=== PATIENT | male | born 1975 | race Caucasian/White ===

== ENCOUNTER 2018-09-04 16:28 | Emergency (ER) | payer MEDICAID, OTHER ==
[~2018-09-04] VITALS: Ht 177.8 cm; Wt 75.0 kg
[2018-09-04] MEDS ORDERED: CefTRIAXone/D5W-Rocephin 1gm 50 ML IV ONE (17:25)
[2018-09-04 17:26] LABS: BASOPHILS # (AUTO) 0.1 X10'3 (0-0.2); BASOPHILS % (AUTO) 0.2 % (0-1); EOSINOPHILS % (AUTO) 0.1 % (0-6); HEMATOCRIT 45.3 % (42.0-52.0); HEMOGLOBIN 14.9 g/dl (14.0-17.9); LYMPHOCYTES # (AUTO) 0.7 X10'3 (1.1-4.8); LYMPHOCYTES % (AUTO) 2.3 % (21-51); MEAN CORPUSCULAR HGB CONC 32.9 g/dL (33.0-36.5); MEAN CORPUSCULAR VOLUME 84.9 FL (78-98); MEAN PLATELET VOLUME 7.3 FL (7.4-10.4); MONOCYTES # (AUTO) 1.6 X10'3 (0-0.9); MONOCYTES % (AUTO) 5.1 % (2-12); NEUTROPHILS # (AUTO) 28.7 X10'3 (1.8-7.7); NEUTROPHILS % (AUTO) 92.3 % (42-75); PLATELET COUNT 342 X10'3 (140-440); RED BLOOD COUNT 5.33 X10'6 (4.70-6.10); RED CELL DISTRIBUTION WIDTH 13.7 % (11.5-14.5)
[2018-09-04 17:31] LABS: WHITE BLOOD COUNT 31.1 X10'3 (4.5-11.0)
[2018-09-04 17:35] LABS: ALANINE AMINOTRANSFERASE 19 U/L (12-78); ALBUMIN 3.5 G/DL (3.4-5.0); ALBUMIN/GLOBULIN RATIO 0.9 (1.1-1.5); ALKALINE PHOSPHATASE 78 IU/L (46-116); ANION GAP 6 (8-16); ASPARTATE AMINO TRANSFERASE 12 U/L (10-37); BILIRUBIN,TOTAL 0.8 MG/DL (0.1-1.0); BLOOD UREA NITROGEN 17 MG/DL (7-18); BUN/CREATININE RATIO 12.8 (5.4-32.0); CALCIUM 8.9 MG/DL (8.5-10.1); CHLORIDE 101 MMOL/L (99-107); CREATININE 1.33 MG/DL (0.60-1.10); GLUCOSE 113 MG/DL (70-104); POTASSIUM 3.9 MMOL/L (3.5-5.1); SODIUM 136 MMOL/L (135-145); TOTAL PROTEIN 7.4 G/DL (6.4-8.2); eGFR 58 ML/MIN
[2018-09-04] MEDS ORDERED: GUAI237S46 PO (18:04)
[2018-09-04] MEDS ORDERED: AZIT250T83 PO (18:04)
[2018-09-04 18:11] LABS: TOTAL CELLS COUNTED 100
[2018-09-04 18:12] LABS: PLATELET ESTIMATE NORMAL; TOXIC GRANULATION 1+
[2018-09-04 18:13] LABS: TOXIC VACUOLATION FEW
[2018-09-04 18:31] VITALS: BP 116/76
== END 2018-09-04 18:36 | disposition home or self-care (01) ==
LOC: ER 16:29
DX: J18.9 Pneumonia, unspecified organism (principal); F17.200 Nicotine dependence, unspecified, uncomplicated
CPT/HCPCS: 36415; 71045; 80053; 83605; 84145; 85025; 93005; 96365; 99284; J0696

== ENCOUNTER 2020-11-24 08:23 | Emergency (ER) | payer MEDICAID, OTHER ==
[~2020-11-24] VITALS: Ht 175.3 cm; Wt 73.0 kg
[2020-11-24 10:00] VITALS: BP 135/90
[2020-11-24] MEDS ORDERED: ketorolac trometh. 30mg/ml inj. IV ONE (10:10)
[2020-11-24 10:40] LABS: BASOPHILS # (AUTO) 0.1 X10'3 (0-0.2); BASOPHILS % (AUTO) 0.4 % (0-1); EOSINOPHILS # (AUTO) 0.2 X10'3 (0-0.9); EOSINOPHILS % (AUTO) 1.5 % (0-6); HEMATOCRIT 45.8 % (42.0-52.0); HEMOGLOBIN 15.5 g/dl (14.0-17.9); LYMPHOCYTES # (AUTO) 1.7 X10'3 (1.1-4.8); LYMPHOCYTES % (AUTO) 13.6 % (21-51); MEAN CORPUSCULAR HEMOGLOBIN 28.6 PG (27.0-31.0); MEAN CORPUSCULAR HGB CONC 33.8 g/dL (33.0-36.5); MEAN CORPUSCULAR VOLUME 84.4 FL (78-98); MEAN PLATELET VOLUME 6.9 FL (7.4-10.4); MONOCYTES # (AUTO) 1.5 X10'3 (0-0.9); MONOCYTES % (AUTO) 11.8 % (2-12); NEUTROPHILS # (AUTO) 9.1 X10'3 (1.8-7.7); NEUTROPHILS % (AUTO) 72.7 % (42-75); PLATELET COUNT 371 X10'3 (140-440); RED BLOOD COUNT 5.42 X10'6 (4.70-6.10); RED CELL DISTRIBUTION WIDTH 14.1 % (11.5-14.5); WHITE BLOOD COUNT 12.5 X10'3 (4.5-11.0)
[2020-11-24] MEDS ORDERED: iohexol 300mg/ml 100ml inj. ONE (10:51)
[2020-11-24 11:04] LABS: ALANINE AMINOTRANSFERASE 19 U/L (12-78); ALBUMIN 3.2 G/DL (3.4-5.0); ALBUMIN/GLOBULIN RATIO 0.8 (1.1-1.5); ALKALINE PHOSPHATASE 103 IU/L (46-116); ANION GAP 5 (8-16); ASPARTATE AMINO TRANSFERASE 11 U/L (10-37); BILIRUBIN,TOTAL 0.2 MG/DL (0.1-1.0); BLOOD UREA NITROGEN 10 MG/DL (7-18); BUN/CREATININE RATIO 9.7 (5.4-32.0); CALCIUM 8.8 MG/DL (8.5-10.1); CHLORIDE 102 MMOL/L (99-107); CREATININE 1.03 MG/DL (0.60-1.10); GLUCOSE 107 MG/DL (70-104); POTASSIUM 3.6 MMOL/L (3.5-5.1); SODIUM 136 MMOL/L (135-145); TOTAL CARBON DIOXIDE 29.3 MMOL/L (24-32); TOTAL PROTEIN 7.2 G/DL (6.4-8.2); eGFR 77 ML/MIN
[2020-11-24] MEDS ORDERED: ringers solution, lacted 1,000 ML IV ONE (14:00)
[2020-11-24 14:45] LABS: CLARITY,URINE CLEAR (Clear); COLOR,URINE YELLOW (Yellow); GLUCOSE, URINE NEGATIVE (Neg); KETONES,URINE NEGATIVE (Neg); LEUKOCYTE ESTERASE ,URINE NEGATIVE (Neg); NITRITES, URINE NEGATIVE (Neg); OCCULT BLOOD,URINE TRACE-INTACT (Neg); PROTEIN,URINE NEGATIVE (Neg)
[2020-11-24 14:47] LABS: UA COLLECTION TYPE URINAL
[2020-11-24 14:51] LABS: BACTERIA,URINE NONE SEEN /HPF (Neg); MUCUS STRANDS FEW /LPF (Neg); RBC,URINE 0-2 /HPF (0-2); SQUAMOUS EPITHELIAL CELL,UR FEW /LPF (FEW); WBC,URINE 0-4 /HPF (0-4)
== END 2020-11-24 14:30 | disposition left against medical advice (07) ==
LOC: ER 08:23
DX: M54.9 Dorsalgia, unspecified (principal); K57.90 Diverticulosis of intestine, part unspecified, without perforation or abscess without bleeding
CPT/HCPCS: 36415; 71250; 74177; 80053; 81001; 85025; 96374; 99285; J1885; Q9967

== ENCOUNTER 2021-08-30 01:21 | Inpatient (IN) | payer MEDICAID ==
[~2021-08-30] VITALS: Ht 175.3 cm; Wt 77.3 kg
[2021-08-30] VITALS (7 sets, daily range): BP systolic 109–158; BP diastolic 61–81
[2021-08-30 01:48] LABS: BASOPHILS % (AUTO) 0.2 % (0-1); EOSINOPHILS # (AUTO) 0.1 X10'3 (0-0.9); EOSINOPHILS % (AUTO) 0.2 % (0-6); HEMATOCRIT 54.8 % (42.0-52.0); LYMPHOCYTES # (AUTO) 1.3 X10'3 (1.1-4.8); LYMPHOCYTES % (AUTO) 6.2 % (21-51); MEAN CORPUSCULAR HEMOGLOBIN 28.3 PG (27.0-31.0); MEAN CORPUSCULAR HGB CONC 33.8 g/dL (33.0-36.5); MEAN CORPUSCULAR VOLUME 83.7 FL (78-98); MEAN PLATELET VOLUME 7.2 FL (7.4-10.4); MONOCYTES % (AUTO) 4.4 % (2-12); NEUTROPHILS # (AUTO) 19.4 X10'3 (1.8-7.7); PLATELET COUNT 460 X10'3 (140-440); RED BLOOD COUNT 6.55 X10'6 (4.70-6.10); WHITE BLOOD COUNT 21.8 X10'3 (4.5-11.0)
[2021-08-30 01:52] LABS: HEMOGLOBIN 18.5 g/dl (14.0-17.9)
[2021-08-30 02:00] LABS: ALANINE AMINOTRANSFERASE 27 U/L (12-78); ALBUMIN 4.4 G/DL (3.4-5.0); ALKALINE PHOSPHATASE 122 IU/L (46-116); ANION GAP 12 (8-16); ASPARTATE AMINO TRANSFERASE 14 U/L (10-37); BILIRUBIN,TOTAL 0.4 MG/DL (0.1-1.0); BLOOD UREA NITROGEN 24 MG/DL (7-18); BUN/CREATININE RATIO 13.6 (5.4-32.0); CALCIUM 10.5 MG/DL (8.5-10.1); CHLORIDE 101 MMOL/L (99-107); CREATININE 1.76 MG/DL (0.60-1.10); GLUCOSE 189 MG/DL (70-104); LIPASE < 50 U/L (73-393); POTASSIUM 4.5 MMOL/L (3.5-5.1); SODIUM 139 MMOL/L (135-145); TOTAL CARBON DIOXIDE 26.5 MMOL/L (24-32); TOTAL PROTEIN 8.9 G/DL (6.4-8.2); eGFR 42 ML/MIN
[2021-08-30] MEDS ORDERED: normal saline 1000ML IV soln IVB ONE ×2 (02:00→03:25)
[2021-08-30] MEDS ORDERED: ondansetron/PF 4mg/2ml inj IV ONE ×2 (02:00→03:25)
[2021-08-30] MEDS ORDERED: normal saline 1000ml 1,000 ML IV ONE (02:05)
[2021-08-30 03:40] LABS: CLARITY,URINE SLIGHTLY CLOUDY (Clear); COLOR,URINE YELLOW (Yellow); GLUCOSE, URINE NEGATIVE (Neg); KETONES,URINE TRACE mg/dl (Neg); LEUKOCYTE ESTERASE ,URINE NEGATIVE (Neg); NITRITES, URINE NEGATIVE (Neg); OCCULT BLOOD,URINE TRACE-INTACT (Neg); PH,URINE 5.5 (4.8-8.0); PROTEIN,URINE 30 mg/dl (Neg); UROBILINOGEN,URINE 0.2 E.U/dL (0.2-1.0)
[2021-08-30 03:45] LABS: UA COLLECTION TYPE URINAL
[2021-08-30] MEDS: morphine 2 MG/ML inj. syringe IV PRN ×5 (03:46→11:53)
[2021-08-30 03:47] LABS: BACTERIA,URINE FEW /HPF (Neg); HYALINE CASTS 0-3 /LPF (NEGATIVE); MUCUS STRANDS FEW /LPF (Neg); SQUAMOUS EPITHELIAL CELL,UR FEW /LPF (FEW)
[2021-08-30 03:48] LABS: CAL OXALATE CRYSTALS 2+ /HPF (NEGATIVE); RBC,URINE 0-2 /HPF (0-2)
[2021-08-30 03:54] LABS: URINE AMPHETAMINE SCREEN POSITIVE (Neg); URINE BARBITUATE SCREEN NEGATIVE (Neg); URINE BENZODIAZEPINES SCREEN NEGATIVE (Neg); URINE CANNABINOID SCREEN NEGATIVE (Neg); URINE COCAINE SCREEN NEGATIVE (Neg); URINE METHADONE SCREEN NEGATIVE (Neg); URINE OPIATE SCREEN NEGATIVE (Neg); URINE PHENCYCLIDINE SCREEN NEGATIVE (Neg)
[2021-08-30 03:58] LABS: MAGNESIUM 1.7 MG/DL (1.5-2.4)
[2021-08-30 04:07] LABS: C-REACTIVE PROTEIN 0.13 MG/DL (0.0-0.5)
[2021-08-30 04:08] LABS: ETHANOL < 0.010 GM/DL (0.0-0.010)
[2021-08-30 04:35] LABS: D-DIMER 0.52 MG/L FEU (0-0.50)
--- NOTE | 2021-08-30 07:16 | NUR ---
sbar the pt condition with dr elliott ,notified that pt is awating hospitalist acceptance,pt recived morphine 2 mg iv and recived 3 l of n.s and his urine output is too litle per night nurse ,pt bp is 194/118,a per md he will put the orders in.
[2021-08-30] MEDS ORDERED: ringers solution, lacted 1,000 ML IV ONE ×2 (07:20→10:25)
[2021-08-30] MEDS ORDERED: morphine 4 MG/ML inj SYRINge IV ONE (07:20)
--- NOTE | 2021-08-30 08:00 | NUR ---
Partial dose given of Kayexalate. Ordered was for 60g. Given was 30g. Pt's potassium is now within normal limits.
[2021-08-30] MEDS: ringers solution, lacted 1,000 ML IV SCH ×2 (10:12→18:18)
--- NOTE | 2021-08-30 10:20 | NUR ---
NOTIFIED DR ARRIETA REGARDING PT CONDITION ,BP 185/106 AND HAS NOT GOT ANYTHING FOR HIGH BP ,PT RECIVED TOTL OF 4L IN ER WITH LOW URINEOUTPUT APPROX 150 ML PER NIGHT NURSE,PT HAS RECIVED MORPHINE FOR PAIN BUT NO PAIN NOTED PT IS SLEEPING BUT BP IS STILL HIGH , PER MD GIVE HYDRALAZINE 10 MG IV Q4 HR GEO AND LABETOLOL 10 MG IV Q1 HR NEEDED FOR SYST BP 160 OR ABOVE AND DIASYT ABOVE 100. CHANGE LACTATE RINGER RATE FROM 50 ML/HR TO 125 ML/HR AND GIVE 1L OF LR BOLUS.
[2021-08-30] MEDS: hydrALAZINE 20mg/ml inj. IV SCH ×3 (11:05→20:00)
[2021-08-30] MEDS ORDERED: ondansetron/PF 4mg/2ml inj IV PRN ×2 (11:45)
[2021-08-30] MEDS: normal saline 1000ml 1,000 ML IV SCH ×2 (11:45→19:45)
[2021-08-30] MEDS ORDERED: acetaminophen 325mg tablet PO PRN ×2 (11:45)
[2021-08-30] MEDS ORDERED: potassium Cl 20 mEq SR tablet PO PRN ×4 (11:45)
[2021-08-30] MEDS ORDERED: potassium CL 10mEq/100ml bag 100 ML IV PRN (11:45)
[2021-08-30] MEDS ORDERED: HYDROmorphone/PF 0.2 MG/ML SYRINGE IV PRN (11:45)
[2021-08-30] MEDS ORDERED: magnesium 2GM in 50ml NS 50 ML IV PRN (11:45)
[2021-08-30] MEDS ORDERED: magnesium Cl slow-release 64mg tablet PO PRN (11:45)
[2021-08-30] MEDS ORDERED: magnesium 4gm in 100ml NS 100 ML IV PRN (11:45)
[2021-08-30] MEDS ORDERED: normal saline 1000ml 1,000 ML IV SCH (11:45)
[2021-08-30] MEDS ORDERED: morphine 4 MG/ML inj SYRINge IV PRN (11:45)
[2021-08-30] MEDS: labetalol 20mg/4ml (5mg/ml) syringe IV PRN (12:03)
[2021-08-30] MEDS ORDERED: NO HOME MEDS (13:22)
[2021-08-30] MEDS ORDERED: iohexol 350MG/ML 100ml bottle IV ONE ×2 (13:36→18:43)
[2021-08-30] MEDS ORDERED: diatr meglu/diatrizoate 30ml oral sol.-(3 dose) bottle PO ONE (13:55)
[2021-08-30 14:11] LABS: MAGNESIUM 1.7 MG/DL (1.5-2.4)
[2021-08-30 14:21] LABS: POTASSIUM 6.1 MMOL/L (3.5-5.1)
[2021-08-30] MEDS ORDERED: sodium bicarbonate (8.4%) 1 mEq/ml syringe IV ONE (14:30)
[2021-08-30] MEDS ORDERED: sodium polystyrene sulfonate 15gm/60ml oral suspension PO ONE (14:30)
[2021-08-30] MEDS ORDERED: calcium chloride 100 MG/1 ML inj IV ONE (14:30)
[2021-08-30] MEDS ORDERED: dextrose 50%-water 50ml dispensing syringe IV ONE (14:30)
[2021-08-30] MEDS ORDERED: insulin regular, human 10 units/0.1 ml syringe IV ONE (14:30)
--- NOTE | 2021-08-30 15:45 | NUR ---
called bernadine rn and informed that after giving report after 1414 pt condition got changed ,pt ng tube came out while pt was using the bedside commode got entangled and came out ,manufacturing process technician came down to take the pt informed that can;t give gastrograffin oral contrast as there is no x ray taken after the ng tube placed ,can't admin anything and i tried to aspirated the stomach content was not sucessfull . pt critican lab value came up 6.[address] garcia and tele order for temp lyons cath for low urine output and md stated he will put the meds order ,admin all the meds except the po meds as itried twice to get ng tube was not sucessfull as pt could not tolerate the pain and want the break .sbar to bernadine to start the ng tube .
--- NOTE | 2021-08-30 15:55 | NUR ---
transporated the pt upsatirs on monitor along with manager loan and student nurses ,pt condition sbar at bedside to bernadine rn ,pt was able to transfer himself to the icu bed .
[2021-08-30] MEDS: K and/or MAG REPLACEMENT MC SCH (20:00)
[2021-08-30 22:16] LABS: ALANINE AMINOTRANSFERASE 18 U/L (12-78); ALKALINE PHOSPHATASE 81 IU/L (46-116); ANION GAP 8 (8-16); ASPARTATE AMINO TRANSFERASE 15 U/L (10-37); BILIRUBIN,TOTAL 0.5 MG/DL (0.1-1.0); BLOOD UREA NITROGEN 14 MG/DL (7-18); BUN/CREATININE RATIO 13.1 (5.4-32.0); CALCIUM 8.5 MG/DL (8.5-10.1); CHLORIDE 104 MMOL/L (99-107); CREATININE 1.07 MG/DL (0.60-1.10); GLUCOSE 75 MG/DL (70-104); MAGNESIUM 1.4 MG/DL (1.5-2.4); PHOSPHORUS 3.8 MG/DL (2.3-4.5); POTASSIUM 4.3 MMOL/L (3.5-5.1); SODIUM 142 MMOL/L (135-145); TOTAL CARBON DIOXIDE 29.6 MMOL/L (24-32); TOTAL PROTEIN 6.1 G/DL (6.4-8.2); eGFR 74 ML/MIN
[2021-08-31] VITALS (24 sets, daily range): BP systolic 104–166; BP diastolic 59–99
[2021-08-31] MEDS: ringers solution, lacted 1,000 ML IV SCH (02:53)
[2021-08-31] MEDS: hydrALAZINE 20mg/ml inj. IV SCH ×6 (04:00→20:00)
[2021-08-31 06:36] LABS: BASOPHILS % (AUTO) 0.2 % (0-1); EOSINOPHILS # (AUTO) 0.4 X10'3 (0-0.9); HEMATOCRIT 46.4 % (42.0-52.0); HEMOGLOBIN 15.6 g/dl (14.0-17.9); LYMPHOCYTES # (AUTO) 1.4 X10'3 (1.1-4.8); LYMPHOCYTES % (AUTO) 11.7 % (21-51); MEAN CORPUSCULAR HEMOGLOBIN 28.3 PG (27.0-31.0); MEAN CORPUSCULAR HGB CONC 33.7 g/dL (33.0-36.5); MEAN CORPUSCULAR VOLUME 84.1 FL (78-98); MEAN PLATELET VOLUME 7.4 FL (7.4-10.4); MONOCYTES # (AUTO) 1.4 X10'3 (0-0.9); MONOCYTES % (AUTO) 11.3 % (2-12); NEUTROPHILS # (AUTO) 8.9 X10'3 (1.8-7.7); NEUTROPHILS % (AUTO) 73.8 % (42-75); PLATELET COUNT 340 X10'3 (140-440); RED BLOOD COUNT 5.52 X10'6 (4.70-6.10); WHITE BLOOD COUNT 12.1 X10'3 (4.5-11.0)
[2021-08-31 06:50] LABS: ALANINE AMINOTRANSFERASE 17 U/L (12-78); ALBUMIN 2.9 G/DL (3.4-5.0); ALBUMIN/GLOBULIN RATIO 0.9 (1.1-1.5); ALKALINE PHOSPHATASE 80 IU/L (46-116); ANION GAP 6 (8-16); ASPARTATE AMINO TRANSFERASE 14 U/L (10-37); BILIRUBIN,TOTAL 0.5 MG/DL (0.1-1.0); BLOOD UREA NITROGEN 13 MG/DL (7-18); BUN/CREATININE RATIO 12.1 (5.4-32.0); CALCIUM 8.3 MG/DL (8.5-10.1); CHLORIDE 103 MMOL/L (99-107); CREATININE 1.07 MG/DL (0.60-1.10); GLUCOSE 83 MG/DL (70-104); PHOSPHORUS 3.1 MG/DL (2.3-4.5); POTASSIUM 4.7 MMOL/L (3.5-5.1); SODIUM 142 MMOL/L (135-145); TOTAL CARBON DIOXIDE 32.8 MMOL/L (24-32); TOTAL PROTEIN 6.1 G/DL (6.4-8.2); eGFR 74 ML/MIN
[2021-08-31] MEDS: labetalol 20mg/4ml (5mg/ml) syringe IV PRN (11:09)
--- NOTE | 2021-08-31 12:01 | NUR ---
Patients BP was 160s/90s. Brought this up to Dr. Martines who advised administering Labetolol 10mg IV as well as putting in a scheduled med order for Metoprolol 25mg Q6H. Repeat BP following labetolol was 139/82.
[2021-08-31] MEDS: metoprolol tartrate 25mg tablet PO SCH ×2 (14:00→20:00)
[2021-08-31] MEDS: K and/or MAG REPLACEMENT MC SCH (20:00)
[2021-09-01] VITALS (8 sets, daily range): BP systolic 128–150; BP diastolic 71–98
[2021-09-01] MEDS: metoprolol tartrate 25mg tablet PO SCH (02:00)
[2021-09-01] MEDS: hydrALAZINE 20mg/ml inj. IV SCH ×2 (04:00)
[2021-09-01 06:27] LABS: BASOPHILS % (AUTO) 0.2 % (0-1); EOSINOPHILS # (AUTO) 0.4 X10'3 (0-0.9); EOSINOPHILS % (AUTO) 3.6 % (0-6); HEMATOCRIT 43.6 % (42.0-52.0); HEMOGLOBIN 14.9 g/dl (14.0-17.9); LYMPHOCYTES # (AUTO) 1.4 X10'3 (1.1-4.8); LYMPHOCYTES % (AUTO) 12.3 % (21-51); MEAN CORPUSCULAR HEMOGLOBIN 28.2 PG (27.0-31.0); MEAN CORPUSCULAR HGB CONC 34.1 g/dL (33.0-36.5); MEAN CORPUSCULAR VOLUME 82.6 FL (78-98); MEAN PLATELET VOLUME 7.3 FL (7.4-10.4); MONOCYTES # (AUTO) 1.3 X10'3 (0-0.9); MONOCYTES % (AUTO) 10.8 % (2-12); NEUTROPHILS # (AUTO) 8.5 X10'3 (1.8-7.7); NEUTROPHILS % (AUTO) 73.1 % (42-75); PLATELET COUNT 324 X10'3 (140-440); RED BLOOD COUNT 5.28 X10'6 (4.70-6.10); RED CELL DISTRIBUTION WIDTH 13.4 % (11.5-14.5); WHITE BLOOD COUNT 11.7 X10'3 (4.5-11.0)
[2021-09-01 07:13] LABS: ALANINE AMINOTRANSFERASE 17 U/L (12-78); ALBUMIN 2.9 G/DL (3.4-5.0); ALBUMIN/GLOBULIN RATIO 0.9 (1.1-1.5); ALKALINE PHOSPHATASE 71 IU/L (46-116); ANION GAP 7 (8-16); ASPARTATE AMINO TRANSFERASE 14 U/L (10-37); BILIRUBIN,TOTAL 0.6 MG/DL (0.1-1.0); BLOOD UREA NITROGEN 11 MG/DL (7-18); BUN/CREATININE RATIO 10.6 (5.4-32.0); CALCIUM 8.1 MG/DL (8.5-10.1); CHLORIDE 103 MMOL/L (99-107); CREATININE 1.04 MG/DL (0.60-1.10); GLUCOSE 75 MG/DL (70-104); MAGNESIUM 1.8 MG/DL (1.5-2.4); PHOSPHORUS 2.8 MG/DL (2.3-4.5); POTASSIUM 3.8 MMOL/L (3.5-5.1); SODIUM 139 MMOL/L (135-145); TOTAL CARBON DIOXIDE 28.9 MMOL/L (24-32); TOTAL PROTEIN 6.1 G/DL (6.4-8.2); eGFR 77 ML/MIN
[2021-09-01] MEDS: K and/or MAG REPLACEMENT MC SCH (07:52)
--- NOTE | 2021-09-01 08:00 | NUR ---
recived report from ICU nurse, patient arrived in wheelchair. VS stable. no reports of discomfort from Patient
[2021-09-01] MEDS ORDERED: metoprolol tartrate 25mg tablet PO SCH ×2 (09:24→20:00)
[2021-09-01] MEDS ORDERED: magnesium hydroxide 30ml (MOM) UD suspension PO ONE (10:30)
--- NOTE | 2021-09-01 14:05 | NUR ---
appears pt may have left the hospital without notifying staff. He is not on unit, security notified, Charge nurse notified. Pt had PIV in. Will continue to look for him.
--- NOTE | 2021-09-01 14:25 | NUR ---
notified [employer] of pt elopement
--- NOTE | 2021-09-01 14:46 | NUR ---
notifed of elopement
== END 2021-09-01 14:00 | disposition left against medical advice (07) | DRG 247 ==
LOC: ER 01:21 → ED HOLD 13:41 → ICU 2S 15:55 → SUR 3N 09-01 07:40
PROVIDERS: ADMIT Internal Medicine Critical Care Medicine; ATTEND Internal Medicine Critical Care Medicine
PROC: 0D9670Z Drainage of Stomach with Drainage Device, Via Natural or Artificial Opening (ICD-10-PCS; principal; 2021-08-30)
PROC: B4201ZZ Computerized Tomography (CT Scan) of Abdominal Aorta using Low Osmolar Contrast (ICD-10-PCS; 2021-08-30)
PROC: B4241ZZ Computerized Tomography (CT Scan) of Superior Mesenteric Artery using Low Osmolar Contrast (ICD-10-PCS; 2021-08-30)
PROC: B4281ZZ Computerized Tomography (CT Scan) of Bilateral Renal Arteries using Low Osmolar Contrast (ICD-10-PCS; 2021-08-30)
PROC: B42C1ZZ Computerized Tomography (CT Scan) of Pelvic Arteries using Low Osmolar Contrast (ICD-10-PCS; 2021-08-30)
PROC: B42H1ZZ Computerized Tomography (CT Scan) of Bilateral Lower Extremity Arteries using Low Osmolar Contrast (ICD-10-PCS; 2021-08-30)
PROC: B4211ZZ Computerized Tomography (CT Scan) of Celiac Artery using Low Osmolar Contrast (ICD-10-PCS; 2021-08-30)
DX: K56.609 Unspecified intestinal obstruction, unspecified as to partial versus complete obstruction (principal); N17.0 Acute kidney failure with tubular necrosis; F15.10 Other stimulant abuse, uncomplicated; D75.1 Secondary polycythemia; N18.9 Chronic kidney disease, unspecified; I12.9 Hypertensive chronic kidney disease with stage 1 through stage 4 chronic kidney disease, or unspecified chronic kidney disease; K29.00 Acute gastritis without bleeding; F17.210 Nicotine dependence, cigarettes, uncomplicated; E87.5 Hyperkalemia; E86.1 Hypovolemia; D72.829 Elevated white blood cell count, unspecified; D75.839 Thrombocytosis, unspecified; K52.9 Noninfective gastroenteritis and colitis, unspecified; E87.2 Acidosis; Z20.822 Contact with and (suspected) exposure to COVID-19
CPT/HCPCS: 36415; 71045; 74174; 74176; 80053; 80305; 80320; 81001; 82948; 83605; 83690; 83735; 84100; 84132; 84145; 84484; 85025; 85379; 85651; 86140; 87040; 87081; 87088; 87635; 96361; 96374; 96375; 96376; 97161; 97530; 97535; 99285; C9803; G0378; J0360; J1815; J2270; J2405; J3475; J3490; J7030; J7120; Q9963; Q9967

== ENCOUNTER 2023-03-21 09:51 | Inpatient (IN) | payer MEDICAID ==
[~2023-03-21] VITALS: Ht 177.8 cm; Wt 77.3 kg
[~2023-03-21 09:51] MED LIST: NO HOME MEDS
[2023-03-21] MEDS ORDERED: LIDOcaine 1% 30ml preserv. free vial IJ ONE (10:20)
[2023-03-21] MEDS ORDERED: TETanus/Pertussis (Acell)/Diphther VAC/PF (Tdap-Adult) 0.5ml syringe IMVAC ONE (10:20)
--- NOTE | 2023-03-21 10:55 | NUR ---
[employer] Officers at bedside speaking with patient.
[2023-03-21 11:06] LABS: BASOPHILS % (AUTO) 0.4 % (0-1); EOSINOPHILS # (AUTO) 0.1 X10'3 (0-0.9); HEMATOCRIT 40.5 % (42.0-52.0); HEMOGLOBIN 13.5 g/dl (14.0-17.9); LYMPHOCYTES # (AUTO) 1.3 X10'3 (1.1-4.8); LYMPHOCYTES % (AUTO) 12.2 % (21-51); MEAN CORPUSCULAR HEMOGLOBIN 28.1 PG (27.0-31.0); MEAN CORPUSCULAR HGB CONC 33.4 g/dL (33.0-36.5); MEAN CORPUSCULAR VOLUME 84.3 FL (78-98); MEAN PLATELET VOLUME 6.8 FL (7.4-10.4); MONOCYTES # (AUTO) 0.9 X10'3 (0-0.9); MONOCYTES % (AUTO) 7.9 % (2-12); NEUTROPHILS # (AUTO) 8.6 X10'3 (1.8-7.7); NEUTROPHILS % (AUTO) 78.5 % (42-75); PLATELET COUNT 338 X10'3 (140-440); RED CELL DISTRIBUTION WIDTH 13.9 % (11.5-14.5); WHITE BLOOD COUNT 10.9 X10'3 (4.5-11.0)
--- NOTE | 2023-03-21 11:14 | NUR ---
[facility] Number [id number]
[2023-03-21 11:16] LABS: APTT 29 SECONDS (22-32); PROTHROMBIN TIME 10.7 SECONDS (9.0-12.0)
[2023-03-21 11:20] LABS: ALANINE AMINOTRANSFERASE 20 U/L (12-78); ALBUMIN 3.1 G/DL (3.4-5.0); ALBUMIN/GLOBULIN RATIO 0.9 (1.1-1.5); ALKALINE PHOSPHATASE 95 IU/L (46-116); ANION GAP 7 (8-16); ASPARTATE AMINO TRANSFERASE 17 U/L (10-37); BILIRUBIN,TOTAL 0.4 MG/DL (0.1-1.0); BLOOD UREA NITROGEN 13 MG/DL (7-18); BUN/CREATININE RATIO 10.6 (10.0-20.0); CALCIUM 8.7 MG/DL (8.5-10.1); CHLORIDE 106 MMOL/L (99-107); CREATININE 1.23 MG/DL (0.60-1.10); GLUCOSE 91 MG/DL (70-104); POTASSIUM 3.6 MMOL/L (3.5-5.1); SODIUM 142 MMOL/L (135-145); TOTAL CARBON DIOXIDE 29.2 MMOL/L (24-32); TOTAL PROTEIN 6.6 G/DL (6.4-8.2); eCRCL 75 ML/MIN; eGFR 63 ML/MIN
[2023-03-21] MEDS ORDERED: VANCOmycin 1250MG/NS 250ml Bag 250 ML IV ONE (12:30)
[2023-03-21] MEDS ORDERED: ringers solution, lacted 1,000 ML IV ONE (12:30)
[2023-03-21] MEDS ORDERED: metoclopramide 5 mg/ml inj IV PRN (13:05)
[2023-03-21] MEDS ORDERED: acetaminophen 325mg tablet PO PRN ×2 (13:05)
[2023-03-21] MEDS ORDERED: ondansetron/PF 4mg/2ml inj IV PRN (13:05)
[2023-03-21] MEDS ORDERED: HYDROcodone/acetaminophen 5mg/325mg tablet PO PRN (13:05)
[2023-03-21] MEDS ORDERED: mag hydrox/Alum hydrox/simeth 30ml oral suspension PO PRN (13:05)
[2023-03-21] MEDS ORDERED: HYDROmorphone inj. 0.5 MG/0.5 ML DISP.SYRIN IV PRN (13:05)
[2023-03-21] MEDS: normal saline 1000ml 1,000 ML IV SCH ×2 (13:05→23:05)
[2023-03-21] MEDS ORDERED: magnesium hydroxide 30ml (MOM) UD suspension PO PRN (13:05)
[2023-03-21] MEDS ORDERED: piperacillin/tazo 4.5gm/100ml 100 ML IV SCH (16:00)
[2023-03-21 17:00] VITALS: BP 149/93; PULSE 56; RESP 14; TEMP 97.9; O2SAT 94
[2023-03-21 20:00] VITALS: RESP 18; O2SAT 90
[2023-03-21] MEDS: docusate sod 100mg capsule PO SCH (20:21)
[2023-03-21 22:00] VITALS: BP 155/94; PULSE 96; RESP 18; TEMP 98.3; O2SAT 90
[2023-03-22] VITALS (19 sets, daily range): BP systolic 104–161; BP diastolic 75–92; PULSE 54–81; RESP 13–19; TEMP 97.7–98; O2SAT 96–100
[2023-03-22] MEDS: ceFAZolin/D5W- 1GM premix 50 ML IV SCH ×2 (00:07→07:23)
[2023-03-22 06:25] LABS: RED CELL DISTRIBUTION WIDTH 13.9 % (11.5-14.5); WHITE BLOOD COUNT 13.7 X10'3 (4.5-11.0)
[2023-03-22 06:28] LABS: BASOPHILS % (AUTO) 0.3 % (0-1); EOSINOPHILS # (AUTO) 0.2 X10'3 (0-0.9); EOSINOPHILS % (AUTO) 1.1 % (0-6); HEMATOCRIT 38.7 % (42.0-52.0); HEMOGLOBIN 13.3 g/dl (14.0-17.9); LYMPHOCYTES # (AUTO) 1.8 X10'3 (1.1-4.8); LYMPHOCYTES % (AUTO) 13.1 % (21-51); MEAN CORPUSCULAR HEMOGLOBIN 28.8 PG (27.0-31.0); MEAN CORPUSCULAR HGB CONC 34.5 g/dL (33.0-36.5); MEAN CORPUSCULAR VOLUME 83.7 FL (78-98); MEAN PLATELET VOLUME 7.3 FL (7.4-10.4); MONOCYTES # (AUTO) 1.2 X10'3 (0-0.9); NEUTROPHILS # (AUTO) 10.5 X10'3 (1.8-7.7); NEUTROPHILS % (AUTO) 76.5 % (42-75); PLATELET COUNT 322 X10'3 (140-440); RED BLOOD COUNT 4.62 X10'6 (4.70-6.10)
[2023-03-22 06:46] LABS: ALBUMIN 2.8 G/DL (3.4-5.0); ANION GAP 7 (8-16); BLOOD UREA NITROGEN 8 MG/DL (7-18); BUN/CREATININE RATIO 7.9 (10.0-20.0); CALCIUM 8.4 MG/DL (8.5-10.1); CHLORIDE 103 MMOL/L (99-107); CREATININE 1.01 MG/DL (0.60-1.10); GLUCOSE 114 MG/DL (70-104); POTASSIUM 3.4 MMOL/L (3.5-5.1); SODIUM 138 MMOL/L (135-145); eCRCL 91 ML/MIN; eGFR 79 ML/MIN
[2023-03-22] MEDS: docusate sod 100mg capsule PO SCH (07:05)
[2023-03-22] MEDS ORDERED: BUPIVAcaine/PF 2.5 mg/ml (0.25%) 30ml vial ONE (07:53)
[2023-03-22] MEDS ORDERED: midazolam 1 mg/ML 2ml injection ONE (08:01)
[2023-03-22] MEDS ORDERED: fentaNYL/PF 50MCG/1 ML 2ML syringe ONE ×2 (08:01→08:20)
[2023-03-22] MEDS ORDERED: ketamine 50mg/5ml syringe ONE (08:02)
[2023-03-22] MEDS ORDERED: vancomycin 1,000mg inj ONE (08:24)
[2023-03-22] MEDS ORDERED: labetalol 20mg/4ml (5mg/ml) syringe IV ONE (08:40)
--- NOTE | 2023-03-22 08:45 | NUR ---
Received from OR via BED, accompanied by Anesthesiologist and report given by Anesthesiologist. PATIENT WAKING UP, NO S/S OF PAIN, V/S WNL, SCD ON, 20G TO RUE, LEFT WRIST DRESSING CDI
[2023-03-22] MEDS ORDERED: proCHLORperazine 10 MG/2 ml inj IV PRN (08:50)
[2023-03-22] MEDS ORDERED: meperidine/PF 25mg/ml syringe IV PRN ×3 (08:50)
[2023-03-22] MEDS ORDERED: ondansetron/PF 4mg/2ml inj IV PRN (08:50)
[2023-03-22] MEDS ORDERED: ringers solution, lacted 1,000 ML IV SCH (08:50)
[2023-03-22] MEDS ORDERED: morphine 2 MG/ML inj. syringe IV PRN (08:50)
[2023-03-22] MEDS ORDERED: morphine 4 MG/ML inj SYRINge IV PRN (08:50)
[2023-03-22] MEDS ORDERED: ipratropium/albuterol 3ml nebule NEB PRN (08:50)
--- NOTE | 2023-03-22 08:50 | NUR ---
Received from OR via BED, accompanied by Anesthesiologist and report given by Anesthesiologist. PATIENT WAKING UP, NO S/S OF PAIN, V/S WNL, SCD ON, 20G TO RUE, LEFT WRIST DRESSING CDI Addendum: 03/22/23 at 0858 by Jaycob Liang RN INCORRECT TIME
[2023-03-22] MEDS ORDERED: propofol inj 40 ML IV ONE (09:03)
[2023-03-22] MEDS: normal saline 1000ml 1,000 ML IV SCH (09:05)
--- NOTE | 2023-03-22 09:35 | NUR ---
PATIENT A&OX4, DENIES PAIN, V/S WNL, SCD ON, 20G TO RUE, LEFT WRIST DRESSING CDI. PATIENT TAKEN TO ROOM WITH ALL BELONGINGS AND HOOKED UP TO MONITORS IN ROOM AND GIVEN CALL LIGHT, REPORT GIVEN TO RN WHO HAS TAKEN OVER PATIENT CARE.
[2023-03-22] MEDS: HYDROcodone/acetaminophen 10/325mg tab PO PRN ×2 (09:56→14:03)
--- NOTE | 2023-03-22 11:53 | NUR ---
WAREDRESSER documentation: I have reviewed all interventions, assessments performed and documented by Emmy MCDONOUGH .
[2023-03-22] MEDS ORDERED: CEPH250T PO (12:40)
[2023-03-22] MEDS ORDERED: HYDR-3965 PO ×2 (12:53→13:44)
--- NOTE | 2023-03-22 14:15 | NUR ---
Patient discharged home with personal belongings. Piv d/c'd tip in tact. Pt opted to walk home, didn't want to wait for a cab. Patient was alert and appropriate at the time of discharge.
== END 2023-03-22 14:15 | disposition home or self-care (01) | DRG 316 ==
LOC: ER 09:51 → ED HOLD 13:06 → EDBEDREQ 15:36 → ORTHO 4S 17:10
PROVIDERS: ADMIT Internal Medicine; ATTEND Internal Medicine
PROC: 0X6P0Z1 Detachment at Left Index Finger, High, Open Approach (ICD-10-PCS; principal; 2023-03-22 07:52)
DX: S68.121A Partial traumatic metacarpophalangeal amputation of left index finger, initial encounter (principal); F17.210 Nicotine dependence, cigarettes, uncomplicated; G89.29 Other chronic pain; Z53.29 Procedure and treatment not carried out because of patient's decision for other reasons; M54.9 Dorsalgia, unspecified; Y93.89 Activity, other specified; Y92.89 Other specified places as the place of occurrence of the external cause; Y99.8 Other external cause status; W34.00XA Accidental discharge from unspecified firearms or gun, initial encounter
CPT/HCPCS: 36415; 73130; 80048; 80053; 82948; 85025; 85610; 85730; 87040; 87081; 93005; 94640; 94760; 96360; 99291; 99292; A4618; A6222; A6446; A6449; A7000; G0378; J0690; J1170; J2250; J2405; J2704; J3010; J3370; J3490; J7030; J7120

== ENCOUNTER 2025-07-05 11:42 | Emergency (ER) | payer MEDICAID ==
[~2025-07-05] VITALS: Ht 175.3 cm; Wt 76.5 kg
[2025-07-05 11:53] VITALS: BP 151/93; PULSE 85; RESP 16; TEMP 98.7; O2SAT 97
--- NOTE | 2025-07-05 12:07 | Physician Documentation ---
History of Present Illness Stated Complaint: HIGH BLOOD PRESSURE MED CLEARANCE Time Seen by MD: 11:55 Primary Medical Doctor: NONE Medication Reconciliation Allergies: Coded Allergies: No Known Allergies (Unverified , 07/05/25) Past Medical History Past Medical History: Chronic Back Pain Past Surgical History: no surgical history Lives with: Alone Lives In: Home Medical Decision Making Additional information obtaine: other Findings Patient is a very pleasant 49-year-old male that presents to the emergency department for evaluation for medical clearance to present to [facility] for alcohol rehabilitation. Patient's vital signs are stable here in the emergency department. Patient denies any symptoms of withdrawal at this time. Patient reports that his last drink was 2 days ago. Patient is medically cleared to present to the rehabilitation center at this time. Differential Dx:Considerations: Other Departure Disposition: 01 HOME / SELF CARE / HOMELESS Impression: Primary Impression: General medical exam Condition: Stable Additional Instructions: Patient is a very pleasant 49-year-old male that presents to the emergency department for evaluation for medical clearance to present to [facility] for alcohol rehabilitation. Patient's vital signs are stable here in the emergency department. Patient denies any symptoms of withdrawal at this time. Patient reports that his last drink was 2 days ago. Patient is medically cleared to present to the rehabilitation center at this time. Referrals: NO PRIMARY CARE PROVIDER (PCP) Education Educated: Patient Educated regarding: diagnosis, treatment, need for follow up Signature Scribe Signature: A Attestation: Scribed for Abdirahman Bella by CIERRA Springer . 07/05/25 12:06 ABDIRAHMAN BELLA Jul 05, 2025 12:07
== END 2025-07-05 12:14 | disposition home or self-care (01) ==
LOC: ER 11:42
DX: Z00.00 Encounter for general adult medical examination without abnormal findings (principal); G89.29 Other chronic pain
CPT/HCPCS: 99282